=== PATIENT | male | born 1950 ===

== ENCOUNTER 2021-02-21 18:34 | Inpatient (IN) | payer MEDICARE ==
[~2021-02-21] VITALS: Ht 188 cm; Wt 91.1 kg
--- NOTE | 2021-02-21 18:52 | NUR ---
pt brought in as transfer from [facility] with chief complaint of needed ERCP for cholelocholithiasis.
[2021-02-21] MEDS ORDERED: METO25TA35 PO (18:59)
[2021-02-21] MEDS ORDERED: RIVA20TA PO (18:59)
--- NOTE | 2021-02-21 19:00 | NUR ---
recieved dhaval MILLER
[2021-02-21 20:29] LABS: BASOPHILS % (AUTO) 1 % (0-1); EOSINOPHILS % (AUTO) 4 % (1-7); LYMPHOCYTES % (AUTO) 20 % (22-44); MEAN CORPUSCULAR HEMOGLOBIN 29.9 pg (27.5-34.5); MEAN CORPUSCULAR HGB CONC 33.8 g/dL (33.2-36.2); MEAN PLATELET VOLUME 8.4 fL (7.4-10.4); MONOCYTES % (AUTO) 12 % (2-9); NEUTROPHILS % (AUTO) 63 % (42-75); PLATELET COUNT 225 x10^3/uL (130-400); RED BLOOD COUNT 4.98 x10^6/uL (4.38-5.82); RED CELL DISTRIBUTION WIDTH 16.3 % (9.4-14.8)
[2021-02-21 20:41] LABS: ALANINE AMINOTRANSFERASE 279 U/L (12-78); ALBUMIN 3.2 g/dL (3.4-5.0); ANION GAP 6 mmol/L (5-15); CALCIUM 9.5 mg/dL (8.5-10.1); CHLORIDE 109 mmol/L (98-107); CREATININE 1.11 mg/dL (0.7-1.3)
[2021-02-21 20:46] LABS: ALKALINE PHOSPHATASE 409 U/L (45-117); TOTAL PROTEIN 7.2 g/dL (6.4-8.2); TROPONIN I < 0.015 ng/mL (0.000-0.045)
--- NOTE | 2021-02-21 20:55 | NUR ---
REPORT TO ABRIL STUART
[2021-02-21] MEDS ORDERED: SODIUM CHLORIDE 0.9% 1,000 ML IV ONE (21:00)
[2021-02-21] MEDS ORDERED: SODIUM CHLORIDE FLUSH 10ML SYR IVF ONE (21:00)
--- NOTE | 2021-02-21 21:02 | NUR ---
REPORT FROM COLIN STUART
--- NOTE | 2021-02-21 21:49 | NUR ---
Dr. Reich repaged
--- NOTE | 2021-02-21 22:58 | NUR ---
REPORT GIVEN TO BEKAH STUART
[2021-02-21] MEDS ORDERED: ONDANSETRON 2MG/ML, 2ML IVPush PRN (23:00)
[2021-02-21] MEDS ORDERED: LABETALOL 5MG/ML, 20ML IVPush PRN (23:00)
[2021-02-21] MEDS ORDERED: hydrALAzine 20 MG/ML, 1ML IVPush PRN (23:00)
[2021-02-21] MEDS ORDERED: POLYETHYLENE GLYCOL 17 GM PACKET PO PRN (23:00)
[2021-02-21] MEDS ORDERED: DOCUSATE 100 MG CAPSULE PO PRN (23:00)
[2021-02-21] MEDS ORDERED: BISACODYL 10 MG SUPP PR PRN (23:00)
[2021-02-21] MEDS ORDERED: HYDROcodone/APAP 5/325 TABLET PO PRN (23:00)
[2021-02-21] MEDS ORDERED: ONDANSETRON ODT 4 MG PO PRN (23:00)
[2021-02-21] MEDS: SODIUM CHLORIDE 0.9% 1,000 ML IV SCH (23:00)
[2021-02-21] MEDS ORDERED: morphine SULFATE 10 MG/ML, 1ML IVPush PRN (23:00)
[2021-02-22 00:02] VITALS: BP 129/79
[2021-02-22 05:28] LABS: BASOPHILS % (AUTO) 1 % (0-1); EOSINOPHILS % (AUTO) 5 % (1-7); LYMPHOCYTES % (AUTO) 24 % (22-44); MEAN CORPUSCULAR HEMOGLOBIN 29.9 pg (27.5-34.5); MEAN CORPUSCULAR HGB CONC 33.7 g/dL (33.2-36.2); MEAN PLATELET VOLUME 8.8 fL (7.4-10.4); MONOCYTES % (AUTO) 13 % (2-9); NEUTROPHILS % (AUTO) 57 % (42-75); PLATELET COUNT 206 x10^3/uL (130-400); RED BLOOD COUNT 4.67 x10^6/uL (4.38-5.82); RED CELL DISTRIBUTION WIDTH 16.3 % (9.4-14.8)
[2021-02-22 05:31] LABS: ALANINE AMINOTRANSFERASE 236 U/L (12-78); ALBUMIN 2.8 g/dL (3.4-5.0); CALCIUM 8.8 mg/dL (8.5-10.1); CREATININE 1.08 mg/dL (0.7-1.3)
[2021-02-22 05:34] LABS: ALKALINE PHOSPHATASE 362 U/L (45-117); TOTAL PROTEIN 6.2 g/dL (6.4-8.2)
[2021-02-22 05:41] LABS: ANION GAP 5 mmol/L (5-15); CHLORIDE 108 mmol/L (98-107)
[2021-02-22 06:45] VITALS: BP 127/74
[2021-02-22] MEDS: METOPROLOL TARTRATE 25 MG TAB PO SCH (08:24)
[2021-02-22] MEDS: SODIUM CHLORIDE 0.9% 1,000 ML IV SCH ×2 (08:25→17:31)
[2021-02-22 13:05] VITALS: BP 136/84
[2021-02-22 19:25] VITALS: BP 160/90
[2021-02-23] MEDS: SODIUM CHLORIDE 0.9% 1,000 ML IV SCH ×2 (03:52→18:00)
[2021-02-23 03:53] VITALS: BP 145/79
[2021-02-23 05:17] LABS: BASOPHILS % (AUTO) 1 % (0-1); EOSINOPHILS % (AUTO) 5 % (1-7); LYMPHOCYTES % (AUTO) 26 % (22-44); MEAN CORPUSCULAR HEMOGLOBIN 29.9 pg (27.5-34.5); MEAN CORPUSCULAR HGB CONC 33.9 g/dL (33.2-36.2); MEAN PLATELET VOLUME 8.6 fL (7.4-10.4); MONOCYTES % (AUTO) 12 % (2-9); NEUTROPHILS % (AUTO) 57 % (42-75); PLATELET COUNT 194 x10^3/uL (130-400); RED CELL DISTRIBUTION WIDTH 16.1 % (9.4-14.8)
[2021-02-23 05:26] LABS: ALBUMIN 2.6 g/dL (3.4-5.0); ANION GAP 3 mmol/L (5-15); CALCIUM 8.9 mg/dL (8.5-10.1); CHLORIDE 109 mmol/L (98-107)
[2021-02-23 05:29] LABS: ALANINE AMINOTRANSFERASE 196 U/L (12-78); ALKALINE PHOSPHATASE 366 U/L (45-117); BILIRUBIN,TOTAL 13.7 mg/dL (0.2-1.0); CREATININE 0.99 mg/dL (0.7-1.3); TOTAL PROTEIN 5.8 g/dL (6.4-8.2)
[2021-02-23 06:49] VITALS: BP 135/78
[2021-02-23] MEDS: METOPROLOL TARTRATE 25 MG TAB PO SCH (10:04)
[2021-02-23] MEDS ORDERED: CHLORHEXIDINE 15 ML UDC PO ONE (14:30)
[2021-02-23] MEDS ORDERED: FENTANYL PF 100 MCG/2ML IV PRN (15:00)
[2021-02-23] MEDS ORDERED: ONDANSETRON 2MG/ML, 2ML IVPush PRN (15:00)
[2021-02-23] MEDS ORDERED: MEPERIDINE/PF 25MG/0.5ML IVPush PRN (15:00)
[2021-02-23] MEDS ORDERED: OMNIPAQUE 350 MG/ML, 50 ML BOTTLE ONE (15:01)
[2021-02-23] MEDS ORDERED: SUCCINYLCHOLINE 20 MG/ML, 10ML ONE (15:02)
[2021-02-23] MEDS ORDERED: PROPOFOL 10 MG/ML, 20ML ONE (15:02)
[2021-02-23] MEDS ORDERED: MIDAZOLAM 1 MG/ML, 2ML ONE (15:03)
[2021-02-23] MEDS ORDERED: INDOMETHACIN 50 MG SUPP.RECT ONE (16:00)
[2021-02-23] MEDS ORDERED: INDOMETHACIN 50 MG SUPP.RECT PR ONE (16:00)
[2021-02-23] MEDS ORDERED: LACTATED RINGERS 1,000 ML IVBOLUS ONE (16:30)
[2021-02-23 18:52] VITALS: BP 161/90
[2021-02-23] MEDS: LACTATED RINGERS 1,000 ML IVBOLUS SCH (19:39)
[2021-02-24 01:55] VITALS: BP 150/81
[2021-02-24] MEDS: SODIUM CHLORIDE 0.9% 1,000 ML IV SCH ×2 (03:37→13:35)
[2021-02-24] MEDS: LACTATED RINGERS 1,000 ML IVBOLUS SCH (04:00)
[2021-02-24] MEDS: OMEPRAZOLE 20 MG CAPSULE.DR PO SCH (04:57)
[2021-02-24 06:50] VITALS: BP 144/77
[2021-02-24] MEDS: METOPROLOL TARTRATE 25 MG TAB PO SCH (10:23)
[2021-02-24 12:06] VITALS: BP 160/85
[2021-02-24 18:28] VITALS: BP 157/84
[2021-02-24] MEDS ORDERED: EPINEPHRINE 1 MG/ML, 1ML ONE (19:39)
[2021-02-24] MEDS ORDERED: BUPIVACAINE/PF 0.5% ONE (19:39)
[2021-02-24] MEDS ORDERED: FENTANYL PF 250 MCG/5ML ONE (20:02)
[2021-02-24] MEDS ORDERED: BUPIVACAINE/PF-EPI 0.5% 1:200K INFIL ONE (20:08)
[2021-02-24] MEDS ORDERED: ALBUTEROL SULFATE 2.5 MG/3 ML NPPB PRN (20:30)
[2021-02-24] MEDS ORDERED: FENTANYL PF 100 MCG/2ML IV PRN (20:30)
[2021-02-24] MEDS ORDERED: KETOROLAC 30 MG/1 ML IV PRN (20:30)
[2021-02-24] MEDS ORDERED: ACETAMINOPHEN 325 MG TABLET PO PRN (20:30)
[2021-02-24] MEDS ORDERED: LABETALOL 5MG/ML, 20ML IV PRN (20:30)
[2021-02-24] MEDS ORDERED: PROMETHAZINE 25 MG/ML, 1ML IV PRN (20:30)
[2021-02-24] MEDS ORDERED: MEPERIDINE/PF 25MG/0.5ML IVPush PRN (20:30)
[2021-02-24] MEDS ORDERED: DIAZEPAM 5 MG/ML, 2ML IVPush PRN (20:30)
[2021-02-24] MEDS ORDERED: hydrALAzine 20 MG/ML, 1ML IV PRN (20:30)
[2021-02-24] MEDS ORDERED: HYDROmorphone 1 MG/ML, 1ML INJ ONE ×2 (21:28→22:51)
[2021-02-24] MEDS ORDERED: GLYCOPYRROLATE 0.2MG/1ML, 5ML ONE (21:29)
[2021-02-24] MEDS ORDERED: DEXAMETHASONE 4 MG/ML, 1ML ONE (21:29)
[2021-02-24] MEDS ORDERED: NEOSTIGMINE 1 MG/ML, 10ML ONE (21:29)
[2021-02-24] MEDS ORDERED: ROCURONIUM 10MG/ML,5ML ONE (21:29)
[2021-02-24] MEDS ORDERED: SUCCINYLCHOLINE 20 MG/ML, 10ML ONE (21:29)
[2021-02-24] MEDS ORDERED: ONDANSETRON 2MG/ML, 2ML ONE (21:29)
[2021-02-24] MEDS ORDERED: PROPOFOL 10 MG/ML, 20ML ONE (21:29)
[2021-02-24] MEDS ORDERED: CEFAZOLIN 1,000 MG ONE (21:29)
[2021-02-24] MEDS ORDERED: METOPROLOL 1 MG/ML, 5ML ONE (21:30)
[2021-02-24] MEDS ORDERED: FENTANYL PF 100 MCG/2ML ONE (22:19)
[2021-02-24] MEDS ORDERED: OXYcodone 5 MG/5 ML ORAL.SOL UDC ONE ×2 (22:19→22:51)
[2021-02-24] MEDS ORDERED: ACETAMINOPHEN 325 MG TABLET ONE (22:19)
[2021-02-24] MEDS: OXYcodone 5 MG/5 ML ORAL.SOL UDC PO PRN ×2 (22:20→22:52)
[2021-02-24] MEDS: HYDROmorphone 2 MG/ML, 1ML IVPush PRN ×2 (22:52→23:00)
[2021-02-25] MEDS ORDERED: OXYcodone/APAP 5/325MG TABLET PO PRN (00:30)
[2021-02-25] MEDS ORDERED: ONDANSETRON ODT 4 MG PO PRN (00:30)
[2021-02-25] MEDS: LACTATED RINGERS 1,000 ML IV SCH ×3 (02:52→23:25)
[2021-02-25 02:56] VITALS: BP 133/68
[2021-02-25 04:42] LABS: BASOPHILS % (AUTO) 0 % (0-1); EOSINOPHILS % (AUTO) 0 % (1-7); LYMPHOCYTES % (AUTO) 8 % (22-44); MEAN CORPUSCULAR HEMOGLOBIN 29.7 pg (27.5-34.5); MEAN CORPUSCULAR HGB CONC 33.3 g/dL (33.2-36.2); MEAN PLATELET VOLUME 8.5 fL (7.4-10.4); MONOCYTES % (AUTO) 5 % (2-9); NEUTROPHILS % (AUTO) 87 % (42-75); PLATELET COUNT 235 x10^3/uL (130-400); RED BLOOD COUNT 4.78 x10^6/uL (4.38-5.82); RED CELL DISTRIBUTION WIDTH 16.4 % (9.4-14.8)
[2021-02-25 04:48] LABS: ALBUMIN 2.9 g/dL (3.4-5.0); ANION GAP 8 mmol/L (5-15); CALCIUM 8.8 mg/dL (8.5-10.1); CHLORIDE 102 mmol/L (98-107)
[2021-02-25 04:50] LABS: CREATININE 1.03 mg/dL (0.7-1.3)
[2021-02-25] MEDS: OMEPRAZOLE 20 MG CAPSULE.DR PO SCH (05:58)
[2021-02-25 06:52] VITALS: BP 116/66
[2021-02-25] MEDS: METOPROLOL TARTRATE 25 MG TAB PO SCH (08:14)
[2021-02-25] MEDS: ACETAMINOPHEN 325 MG TABLET PO PRN ×2 (12:48→20:06)
[2021-02-25 13:41] VITALS: BP 118/67
[2021-02-25 14:30] LABS: ALBUMIN 2.9 g/dL (3.4-5.0); BILIRUBIN, DIRECT 5.7 mg/dL (0.1-0.2)
[2021-02-25 14:31] LABS: BILIRUBIN,INDIRECT 1.4 mg/dL (0.0-2.0); BILIRUBIN,TOTAL 7.1 mg/dL (0.2-1.0); TOTAL PROTEIN 6.8 g/dL (6.4-8.2)
[2021-02-25 18:45] VITALS: BP 135/73
[2021-02-26 02:09] VITALS: BP 158/80
[2021-02-26 04:31] LABS: BASOPHILS % (AUTO) 1 % (0-1); EOSINOPHILS % (AUTO) 2 % (1-7); LYMPHOCYTES % (AUTO) 20 % (22-44); MEAN CORPUSCULAR HEMOGLOBIN 30.2 pg (27.5-34.5); MEAN CORPUSCULAR HGB CONC 34.2 g/dL (33.2-36.2); MEAN PLATELET VOLUME 8.7 fL (7.4-10.4); MONOCYTES % (AUTO) 11 % (2-9); NEUTROPHILS % (AUTO) 67 % (42-75); PLATELET COUNT 204 x10^3/uL (130-400); RED BLOOD COUNT 4.07 x10^6/uL (4.38-5.82); RED CELL DISTRIBUTION WIDTH 16.3 % (9.4-14.8)
[2021-02-26 04:43] LABS: ANION GAP 4 mmol/L (5-15); CALCIUM 8.3 mg/dL (8.5-10.1); CHLORIDE 108 mmol/L (98-107); CREATININE 0.72 mg/dL (0.7-1.3)
[2021-02-26] MEDS: OMEPRAZOLE 20 MG CAPSULE.DR PO SCH (05:31)
[2021-02-26 07:54] VITALS: BP 170/85
[2021-02-26] MEDS ORDERED: TAMSULOSIN 0.4 MG CAP.ER.24H PO SCH (09:00)
[2021-02-26] MEDS: METOPROLOL TARTRATE 25 MG TAB PO SCH (09:25)
[2021-02-26 09:41] VITALS: BP 172/94
[2021-02-26 10:06] VITALS: BP 161/88
[2021-02-26] MEDS ORDERED: TAMS-11 PO (12:34)
[2021-02-26 13:50] VITALS: BP 136/77
== END 2021-02-26 16:28 | disposition home or self-care (01) | DRG 418 ==
LOC: ED 21:42 → 3N 22:38 → 4NW 23:12
PROVIDERS: ADMIT Family Medicine; ATTEND Internal Medicine
PROC: 0FC98ZZ Extirpation of Matter from Common Bile Duct, Via Natural or Artificial Opening Endoscopic (ICD-10-PCS; principal; 2021-02-23 15:00)
PROC: 0FT44ZZ Resection of Gallbladder, Percutaneous Endoscopic Approach (ICD-10-PCS; 2021-02-24)
DX: K80.65 Calculus of gallbladder and bile duct with chronic cholecystitis with obstruction (principal); D68.9 Coagulation defect, unspecified; D62 Acute posthemorrhagic anemia; Z20.822 Contact with and (suspected) exposure to COVID-19; K66.0 Peritoneal adhesions (postprocedural) (postinfection); R07.9 Chest pain, unspecified; R10.13 Epigastric pain; R19.5 Other fecal abnormalities; R33.9 Retention of urine, unspecified; K29.80 Duodenitis without bleeding; I48.91 Unspecified atrial fibrillation; K40.90 Unilateral inguinal hernia, without obstruction or gangrene, not specified as recurrent; N20.0 Calculus of kidney; Z79.01 Long term (current) use of anticoagulants; Z83.3 Family history of diabetes mellitus; Z79.899 Other long term (current) drug therapy; Z79.891 Long term (current) use of opiate analgesic
CPT/HCPCS: 36415; 71045; 74328; 80048; 80053; 80069; 80076; 83690; 83735; 84484; 85025; 87635; 88304; 93005; 96360; G0378; J0171; J0690; J1100; J1170; J2250; J2405; J2704; J2710; J3010; Q9967; C1769; J0330; J7030; J7120